=== PATIENT | male | born 1975 | race Two or more races ===

== ENCOUNTER 2020-10-05 23:03 | Emergency (ER) | payer MEDICAID, OTHER ==
[~2020-10-05] VITALS: Ht 167.6 cm; Wt 90.7 kg
[2020-10-06] MEDS ORDERED: FLUORESCEIN SOD OPTH TEST STRIP LEFTEYE ONE (03:00)
[2020-10-06] MEDS ORDERED: TETRACAINE HCL 0.5% OPTH(EYE) SOLN 4ML LEFTEYE ONE (03:00)
[2020-10-06 04:17] VITALS: BP 117/75
== END 2020-10-06 04:24 | disposition home or self-care (01) ==
LOC: ER 23:03
DX: T15.92XA Foreign body on external eye, part unspecified, left eye, initial encounter (principal); S05.02XA Injury of conjunctiva and corneal abrasion without foreign body, left eye, initial encounter; X58.XXXA Exposure to other specified factors, initial encounter; Y93.89 Activity, other specified; Y92.89 Other specified places as the place of occurrence of the external cause; Y99.8 Other external cause status
CPT/HCPCS: 65222